=== PATIENT | female | born 1995 | race African-American/Black ===

== ENCOUNTER 2017-03-23 22:33 | Emergency (ER) | payer MEDICAID, SELFPAY ==
[2017-03-23 22:35] VITALS: BP 144/94; PULSE 106; RESP 17; TEMP 36.5; O2SAT 100; BMI 16.6
--- NOTE | 2017-03-23 22:48 | CT_ITS ---
STUDY: CT ABDOMEN AND PELVIS WITHOUT CONTRAST REASON FOR EXAM: Female, 21 years old. Intermittent flank pain x1 week, emesis x1. RADIATION DOSAGE (If Supplied By Facility): CTDIvol = ( 6.04 ) mGy, DLP = ( 255.17 ) mGycm TECHNIQUE: Transaxial 2.5 mm images were obtained from the dome of the diaphragm to the symphysis pubis without oral contrast, and without intravenous contrast. Sagittal and coronal images were reconstructed. This examination is limited for the evaluation of gastrointestinal, solid organs and vascular structures due to the lack of intravenous and oral contrast. Individualized dose optimization techniques were used for this CT. COMPARISON: None. FINDINGS: The visualized lung bases are unremarkable. The visualized portions of the heart are within normal limits. Normal liver. Normal gallbladder and extrahepatic biliary system. Normal spleen. Normal pancreas. Normal bilateral adrenal glands. Mild right hydronephrosis with a obstructing calculus 0.5 x 0.3 x 0.7 cm ( AP x width x height ). Image 73 series 2, image 43 series 601-inferior to the UPJ Left upper renal pole cyst 2 x 2.2 x 2.2 cm. Normal visualized stomach. Normal small intestine. Normal colon. The appendix is partially visualized and appears normal. Normal abdominal aorta. Normal inferior vena cava. Normal retroperitoneum. Normal urinary bladder. Retroverted uterus contains an intrauterine device in good position. There is a right small ovarian cyst of 0.9 x 0.9 cm. Normal abdominal wall. Normal osseous structures. CT/Abdomen/Pelvis without Cont IMPRESSION: Mild right hydronephrosis with a proximal right ureteral calculus just inferior to the UPJ. Left renal and right ovarian cyst. Electronically Signed: Peg Ramos MD at 0:47 EST , Service support ,
[2017-03-23 23:15] LABS: Absolute Lymphocyte Count 2.96 X10^3/ul (0.83-4.51); Absolute Neutrophil Count 6.2 X10^3/uL (2.0-7.7); Basophil# 0.01 X10^3/uL; Basophil% 0.1 % (0-1); Eosinophil# 0.16 X10^3/uL; Eosinophils% 1.6 % (0-5); Hematocrit 38.3 % (37-47); Hemoglobin 13.2 g/dl (12.0-15.0); Lymphocyte # 2.96 X10^3/ul (4.0); Lymphocyte % 28.8 % (19-41); Mean Corp Hgb Conc 34.5 g/gl (32-36); Mean Corpuscular Hgb 30.7 pg (27.0-32.0); Mean Corpuscular Volume 89.1 fL (81-99); Mean Platelet Vol. 10.2 fl (6.2-12.0); Monocyte% 8.8 % (0-10); Neutrophil # 6.23 X10^3/uL (2.7-7.7); Neutrophil % 60.6 % (47-70); POSITIVE COUNT NO; POSITIVE DIFFERENTIAL NO; POSITIVE MORPHOLOGY NO; Platelet Count 274 K/mm3 (150-450); RBC Distribution Width CV 12.7 % (11.6-14.6); RBC Distribution Width SD 40.8 fl (35.1-43.9); White Blood Count 10.3 K/mm3 (4.4-11.0)
[2017-03-23] MEDS: Ondansetron 4 MG/2 ML Vial IV (23:17)
[2017-03-23 23:33] LABS: ALB/GLOB Ratio 1.1 RATIO (0.9-2.4); AST(SGOT) 17 U/L (15-37); Alanine Aminotransfer ALT/SGPT 19 U/L (13-56); Albumin, Serum 3.8 g/dL (3.2-5.0); Alkaline Phosphatase 74 U/L (45-117); Anion Gap 7 (5-15); BUN 15 mg/dL (7-18); BUN/Creat Ratio 32.3 RATIO (10-20); Calcium,Total 8.8 mg/dL (8.5-10.1); Chloride 110 mmol/L (98-107); Creatinine, Serum 0.46 mg/dL (0.55-1.02); EST Glomerular Filtration Rate 178 mL/min (>60); Est Glom Filt Rate - Afr Amer 215 mL/min (>60); Estimated Creatinine Clearance 112.96 ml/min; Globulin 3.5 g/dL (2.2-4.2); Glucose 91 mg/dL (74-106); Lipase 125 U/L (73-393); Potassium 3.5 mmol/L (3.5-5.1); Protein, Total 7.3 g/dL (6.4-8.2); Sodium Level 140 mmol/L (136-145)
[2017-03-23 23:35] LABS: Pregnancy, Serum, hCG Quali. NEGATIVE Negative (0-9 Nonpreg)
--- NOTE | 2017-03-23 23:44 | ED.DCSUM_ITS ---
- ER Visit Summary Date of Service: 03/23/17 Chief Complaint: Right side pain History of Present Illness: The patient is a 21 F with right side pain for the past week, worse today. Patient has associated nausea, vomiting, and chills. Denies any urine changes. Denies any history of kidney stones or kidney infections. Denies shortness of breath or chest pain. Denies trauma. Incidentally, she does report that she has had menstrual bleeding for the past month. She was told it was related to her IUD. Physical Examination: Afebrile and vital signs unremarkable except for a heart rate of 106. The patient appears uncomfortable but not toxic or in distress. Heart regular. Lungs clear throughout all fox. Abdomen tender in the right flank region. Patient also has mild right CVA tenderness and tenderness to palpation over the inferior costal margin on the right. Spine nontender. Overlying skin appears normal. Test Results: CBC, CMP, lipase, and test negative. Urinalysis and CT flank pending. Emergency Department Course and Treatment: Patient presents with right flank pain. This is likely myofascial, but because of the severity, a workup was pursued. So far, lab work is unremarkable. At the time of this dictation, I am waiting for urinalysis and CT results. Patient had fluids, morphine, and Zofran while awaiting results. The oncoming physician will check the results of the urinalysis and CAT scan. Will treat accordingly. If negative, I believe this is myofascial pain. The patient will be prescribed anti-inflammatories and muscle relaxers. Follow-up with primary care. Treatment Plan: As above Disposition: Pending urinalysis and imaging results Impression: 1. Right flank pain This note was generated with [employer] the [employer] software. It may contain incorrect words, spelling, and punctuation that were not noted in review of the chart prior to signing ED Disposition - Plan for ED Patient: Chief Complaint: Abd Pain Referrals: Gerry Villa [Primary Care Provider] -
--- NOTE | 2017-03-23 23:44 | ED.DEP ---
ED Disposition - Plan for ED Patient: Chief Complaint: Abd Pain Instructions: ED Flank Pain Uncertain Cause Prescriptions: Naproxen [Naprosyn] 500 mg PO BID #20 tab Cyclobenzaprine [Flexeril] 10 mg PO TID PRN #20 tab PRN Reason: Muscle Spasm Referrals: Gerry Villa [Primary Care Provider] -
[2017-03-24 00:14] LABS: Mucous, Urine 0 SEEN /hpf (<or=2+)
[2017-03-24 00:17] LABS: Color, Urine Yellow (Yellow); Glucose, Dipstick Normal (Normal); Ketone-Dipstick Negative (Negative); Leukocyte Esterase-Dipstick 100 /ul (Negative); Nitrite-Dipstick Positive (Negative); Occult Blood-Urine 150 /ul (Negative); Protein-Dipstick 15 mg/dl (Negative); Specific Gravity, Urine 1.005 (1.002-1.030); Urine Bilirubin Dipstick Negative (Negative); Urine Clarity Sl. Cloudy (Clear); Urine Urobilinogen Normal (Normal)
[2017-03-24 00:28] LABS: Red Blood Cells-Urine 5-10 SEEN /hpf (0-5); Squamous Epithelial Cells - UA 0-5 SEEN /hpf (5-10); White Blood Cells 5-10 SEEN /hpf (0-5)
[2017-03-24 00:29] LABS: Amorphous Sediment 1+ PHOS; Bacteria RARE /hpf (None Seen)
--- NOTE | 2017-03-24 01:12 | ED.DEP ---
ED Disposition - Plan for ED Patient: Disposition: Home or Assisted Living Chief Complaint: Abd Pain Instructions: Treating Kidney Stones: Medications Prescriptions: Hydrocodone Bitart/Apap 5-325 [Humble 5/325] 1 - 2 tab PO Q4H PRN PRN 3 Days #12 tab PRN Reason: Pain Naproxen [Naprosyn] 500 mg PO BID #20 tab Cyclobenzaprine [Flexeril] 10 mg PO TID PRN #20 tab PRN Reason: Muscle Spasm Referrals: Darron Reynolds MD [STAFF PHYSICIAN] -
[2017-03-24] MEDS: HYDROcodone Bitartrate/Apap 5/325 Tablet PO (01:19)
[2017-03-24 01:21] VITALS: BP 117/77; PULSE 89; RESP 18; O2SAT 98
== END 2017-03-24 01:26 | disposition home or self-care (01) ==
PROVIDERS: Emergency Medicine; Emergency Provider Emergency Medicine; Family Provider Physician Assistant; PCP Physician Assistant
DX: N13.2 Hydronephrosis with renal and ureteral calculous obstruction (principal); G71.0 Muscular dystrophy; Z72.0 Tobacco use
CPT/HCPCS: 74176; 80053; 81001; 83690; 84703; 85025; 96374; 96375; 99283; A4216; J2405

== ENCOUNTER 2017-04-12 23:45 | Emergency (ER) | payer MEDICAID, SELFPAY ==
--- NOTE | 2017-04-12 00:40 | RAD_ITS ---
STUDY: X-RAY - ABDOMEN/PELVIS REASON FOR EXAM: Female, 21 years old. Abdominal pain. History of kidney stone. TECHNIQUE: AP supine abdomen. COMPARISON: CT abdomen and pelvis March 23, 2017. FINDINGS: Normal visualized lung bases. There is an unremarkable bowel gas pattern. There is no demonstrated free abdominal air. The visualized liver, spleen and kidneys are grossly normal in size and morphology. 7 mm right mid abdominal stone identified on the prior CT scan is not visualized on the study. Normal soft tissue structures. Normal visualized osseous structures. IUD present in the pelvis. RAD/Abdomen Single View IMPRESSION: Normal x-ray examination of the abdomen and pelvis. Previously noted proximal right ureteral stone not visualized. Electronically Signed: Dank Villagomez MD at 1:15 EST , Service support ,
[2017-04-12 23:45] VITALS: BP 127/78; PULSE 94; RESP 16; TEMP 36.7; BMI 16.2
--- NOTE | 2017-04-12 23:56 | ED.VISSUMM ---
- ER Visit Summary Date of Service: 04/12/17 Chief Complaint: Flank pain, dysuria History of Present Illness: The patient is a 21 F is to the emergency department with urinary frequency and urgency. The patient had documented CTs scan which showed a striking stone on the right. She is following with urology. Her next appointment is in 7 days. She states over the past 24 hours, she has had some increasing spasm, urinary frequency, and urgency. She also had some scant hematuria. She states she has not had anything like this since she was diagnosed. She denies any fevers or chills. She denies any nausea vomiting. She denies any other systemic symptoms. Physical Examination: Vital signs reviewed General: Well-nourished, well-developed Head: Normocephalic, atraumatic Eyes: Pupils equal and reactive, extraocular muscles intact Neck, supple, no lymphadenopathy Heart: Regular rate and rhythm Respiratory: No distress, clear bilaterally Abdomen: Soft, nontender, nondistended, no peritoneal signs Back: Mild right-sided CVA tenderness Extremities: Nontender, no edema, no cords Skin: Normal color no rash Neuro: Alert and oriented, no focal or lateralizing deficits Test Results: UA shows no evidence of acute infection. KUB is none able to visualize the stone. Emergency Department Course and Treatment: Patient's major complaint is of urinary frequency and some burning of her urethra. I did review her CT and it was a large obstructing stone. I obtained a KUB and the stone was unable to be visualized. She has really no significant tenderness. Her abdomen was benign. The urine does not show any evidence of infection. I do feel she is likely having some spasm as the stone is likely moving. She is tolerating p.o. I do feel that she is safe for outpatient therapy. I will refill a short course of analgesics given the size of her stone. I will also add Pyridium for her pain with urination. The patient be discharged home. Treatment Plan: [] Disposition: Discharge Impression: 1. Renal colic 2. Dysuria This note was generated with [employer] dictation software. It may contain incorrect words, spelling, and punctuation that were not noted in review of the chart prior to signing ED Disposition - Plan for ED Patient: Chief Complaint: Complaint Instructions: ED Stone Renal W Colic Prescriptions: Hydrocodone Bitart/Apap 5-325 [Satartia 5/325] 1 tab PO Q4H PRN PRN #10 tab PRN Reason: Pain Phenazopyridine HCl [Pyridium] 200 mg PO BID PRN PRN #10 tab PRN Reason: Pain Referrals: Gerry Villa [Primary Care Provider] -
[2017-04-13] MEDS: Ondansetron ODT 4 MG Tablet PO (00:58)
[2017-04-13 01:14] LABS: Bacteria 0 SEEN /hpf (None Seen); Mucous, Urine 0 SEEN /hpf (<or=2+)
[2017-04-13 01:21] LABS: Color, Urine Yellow (Yellow); Glucose, Dipstick Normal (Normal); Ketone-Dipstick Negative (Negative); Leukocyte Esterase-Dipstick 100 /ul (Negative); Nitrite-Dipstick Negative (Negative); Occult Blood-Urine 25 /ul (Negative); Protein-Dipstick 30 mg/dl (Negative); Specific Gravity, Urine 1.015 (1.002-1.030); Urine Bilirubin Dipstick Negative (Negative); Urine Clarity Cloudy (Clear); Urine Urobilinogen Normal (Normal)
[2017-04-13 01:29] LABS: Internal QC Validated? YES +Cl - CLEAR BKGD; Pregnancy, Urine Negative Negative
[2017-04-13] MEDS: HYDROcodone Bitartrate/Apap 5/325 Tablet PO ×2 (01:32→02:07)
[2017-04-13 01:34] LABS: Red Blood Cells-Urine 0-5 SEEN /hpf (0-5); White Blood Cells 5-10 SEEN /hpf (0-5)
[2017-04-13 01:35] LABS: Amorphous Sediment 3+; Squamous Epithelial Cells - UA 10-25 SEEN /hpf (5-10)
[2017-04-13 01:40] VITALS: BP 131/74; PULSE 98; RESP 24; O2SAT 98
[2017-04-13] MEDS: Phenazopyridine 95 MG Tablet 190 MG PO (02:07)
[2017-04-13 02:10] VITALS: BP 129/78; PULSE 87; RESP 14; O2SAT 98
--- NOTE | 2017-04-13 02:11 | ED.RN ---
THIS NURSE REVIEWED D/C INSTRUCTIONS WITH PT. PT VERBALIZED UNDERSTANDING OF INSTRUCTIONS. PT DENIES FURTHER NEEDS OR QUESTIONS AT THIS TIME. PT AMBULATES FROM ROOM ON OWN WITHOUT ASSISTANCE FROM STAFF
== END 2017-04-13 02:12 | disposition home or self-care (01) ==
PROVIDERS: Emergency Provider Emergency Medicine; Family Provider Physician Assistant; PCP Physician Assistant
DX: N20.0 Calculus of kidney (principal); Z87.442 Personal history of urinary calculi
CPT/HCPCS: 74018; 81001; 81025; 99283

== ENCOUNTER → 2017-09-22 16:26 | Outpatient (CLI) | payer MEDICAID, SELFPAY ==
[2017-09-22 19:20] LABS: Chlamydia Trachomatis by PCR Negative (Negative); Neisserai gonorrhoeae by PCR Negative (Negative); Probe Check PASS; Sample Adequacy Control PASS; Specimen Processing Control PASS
== END ==
PROVIDERS: Visit Provider Obstetrics & Gynecology
DX: Z11.3 Encounter for screening for infections with a predominantly sexual mode of transmission (principal)
CPT/HCPCS: 87077; 87086; 87088; 87186; 87491; 87591

== ENCOUNTER → 2018-01-20 14:30 | Outpatient (CLI) | payer MEDICAID, SELFPAY ==
[2018-01-20 14:30] VITALS: BMI 16.6
[2018-01-20 18:01] LABS: Chlamydia Trachomatis by PCR Negative (Negative); Neisserai gonorrhoeae by PCR Negative (Negative); Probe Check PASS; Sample Adequacy Control PASS; Specimen Processing Control PASS
[2018-01-25 14:34] LABS: HPV Reflexed? NOT INDICATED
== END ==
PROVIDERS: Visit Provider Obstetrics & Gynecology
DX: Z12.4 Encounter for screening for malignant neoplasm of cervix (principal); Z11.3 Encounter for screening for infections with a predominantly sexual mode of transmission; Z32.01 Encounter for pregnancy test, result positive
CPT/HCPCS: 87491; 87591; 88175; G0145

== ENCOUNTER → 2018-02-04 11:15 | Outpatient (CLI) | payer MEDICAID, SELFPAY ==
[2018-01-20 14:30] VITALS: BMI 16.6
[2018-02-04 12:23] LABS: Absolute Neutrophil Count 6.3 X10^3/uL (2.0-7.7); Eosinophil# 0.05 X10^3/uL; Eosinophils% 0.6 % (0-5); Hematocrit 38.4 % (37-47); Lymphocyte % 15.8 % (19-41); Mean Corp Hgb Conc 33.9 g/gl (32-36); Mean Corpuscular Hgb 29.9 pg (27.0-32.0); Mean Corpuscular Volume 88.3 fL (81-99); Mean Platelet Vol. 9.9 fl (6.2-12.0); Monocyte# 0.57 X10^3/uL; Monocyte% 6.9 % (0-10); Neutrophil # 6.28 X10^3/uL (2.7-7.7); Neutrophil % 76.6 % (47-70); Platelet Count 307 K/mm3 (150-450); RBC Distribution Width CV 12.8 % (11.6-14.6); RBC Distribution Width SD 41.6 fl (35.1-43.9); Red Blood Count 4.35 M/mm3 (4.2-5.4); White Blood Count 8.2 K/mm3 (4.4-11.0)
[2018-02-04 12:27] LABS: POSITIVE COUNT NO; POSITIVE DIFFERENTIAL NO; POSITIVE MORPHOLOGY NO
[2018-02-04 13:17] LABS: Thyroid Stim Hormone (TSH) < 0.01 uIU/mL (0.358-3.74)
[2018-02-04 13:49] LABS: HIV - WCH Non-Reactive (Nonreactive); Rubella IgG 346.4 IU/mL
[2018-02-04 14:10] LABS: Free T3 4.7 pg/mL (2.18-3.98); T4 Free Direct 1.57 ng/dL (0.76-1.46)
[2018-02-04 15:20] LABS: Color, Urine Yellow (Yellow); Glucose, Dipstick Normal (Normal); Ketone-Dipstick Negative (Negative); Leukocyte Esterase-Dipstick Negative /ul (Negative); Nitrite-Dipstick Negative (Negative); Occult Blood-Urine Negative /ul (Negative); Protein-Dipstick 15 mg/dl (Negative); Urine Bilirubin Dipstick Negative (Negative); Urine Clarity Cloudy (Clear); Urine Urobilinogen Normal (Normal)
[2018-02-04 15:32] LABS: COTININE Drug Screen Positive (<200 ng/mL)
[2018-02-04 16:33] LABS: Amphetamine Urine VISTA NEGATIVE (<1000 ng/mL); Barbiturate Urine VISTA NEGATIVE (< 200 ng/mL); Benzodiazepine Urine VISTA NEGATIVE (< 200 ng/mL); Cocaine Urine VISTA NEGATIVE (< 300 ng/mL); Ecstacy Urine VISTA NEGATIVE (< 500 ng/mL); Methadone Urine VISTA NEGATIVE (< 300 ng/mL); PCP Urine VISTA NEGATIVE (< 25 ng/mL); THC Urine VISTA NEGATIVE (< 50 ng/mL); Vista UDS pH Range 7
[2018-02-04 23:53] LABS: Prenatal RPR NONREACTIVE (NONREACTIVE)
[2018-02-05 12:48] LABS: HEPATITIS B SURFACE AG Negative (Negative); Hep C Antibodies 0.2 s/co ratio (0.0-0.9)
== END ==
PROVIDERS: Visit Provider Obstetrics & Gynecology
DX: Z34.81 Encounter for supervision of other normal pregnancy, first trimester (principal)
CPT/HCPCS: 36415; 80307; 81002; 84439; 84443; 84481; 85025; 86703; 86762; 86803; 87340

== ENCOUNTER → 2018-03-01 13:28 | Outpatient (CLI) | payer MEDICAID, SELFPAY ==
[2018-01-20 14:30] VITALS: BMI 16.6
[2018-03-01 14:15] LABS: Free T3 3.1 pg/mL (2.18-3.98); T4 Free Direct 1.08 ng/dL (0.76-1.46); Thyroid Stim Hormone (TSH) < 0.01 uIU/mL (0.358-3.74)
== END ==
PROVIDERS: Visit Provider Obstetrics & Gynecology
DX: Z34.82 Encounter for supervision of other normal pregnancy, second trimester (principal)
CPT/HCPCS: 36415; 84439; 84443; 84481

== ENCOUNTER → 2018-04-14 15:35 | Outpatient (CLI) | payer MEDICAID, SELFPAY ==
[2018-01-20 14:30] VITALS: BMI 16.6
[2018-04-14 18:08] LABS: Free T3 2.4 pg/mL (2.18-3.98); T4 Free Direct 0.97 ng/dL (0.76-1.46); Thyroid Stim Hormone (TSH) 0.25 uIU/mL (0.358-3.74)
== END ==
PROVIDERS: Visit Provider Obstetrics & Gynecology
DX: O99.282 Endocrine, nutritional and metabolic diseases complicating pregnancy, second trimester (principal); R94.6 Abnormal results of thyroid function studies; Z3A.00 Weeks of gestation of pregnancy not specified
CPT/HCPCS: 36415; 84439; 84443; 84481

== ENCOUNTER → 2018-05-04 14:59 | Outpatient (CLI) | payer MEDICAID, SELFPAY ==
[2018-01-20 14:30] VITALS: BMI 16.6
[2018-05-04 15:47] LABS: Fetal Fibronectin Negative
== END ==
PROVIDERS: Visit Provider Obstetrics & Gynecology
DX: Z34.82 Encounter for supervision of other normal pregnancy, second trimester (principal)
CPT/HCPCS: 82731

== ENCOUNTER → 2018-06-09 13:03 | Outpatient (CLI) | payer MEDICAID, SELFPAY ==
[2018-01-20 14:30] VITALS: BMI 16.6
[2018-06-09 14:12] LABS: Hematocrit 32.4 % (37-47); Hemoglobin 10.8 g/dl (12.0-15.0); Mean Corp Hgb Conc 33.3 g/gl (32-36); Mean Corpuscular Hgb 29.3 pg (27.0-32.0); Mean Corpuscular Volume 87.8 fL (81-99); Mean Platelet Vol. 10.3 fl (6.2-12.0); Platelet Count 220 K/mm3 (150-450); RBC Distribution Width CV 13.2 % (11.6-14.6); RBC Distribution Width SD 42.6 fl (35.1-43.9); Red Blood Count 3.69 M/mm3 (4.2-5.4); White Blood Count 10.9 K/mm3 (4.4-11.0)
[2018-06-09 14:14] LABS: Glucose Challenge Gest 1H 50g 118 mg/dL (70-140); Scan Indicated on CBC? Y/N NO
== END ==
PROVIDERS: Visit Provider Obstetrics & Gynecology
DX: Z34.83 Encounter for supervision of other normal pregnancy, third trimester (principal)
CPT/HCPCS: 36415; 82950; 85027

== ENCOUNTER 2018-07-19 23:06 | Outpatient (CLI) | payer MEDICAID, SELFPAY ==
[2018-01-20 14:30] VITALS: BMI 16.6
[2018-07-19 23:50] VITALS: BMI 23.1
--- NOTE | 2018-07-26 21:50 | OB.TRI.NOTE ---
History of Present Illness Date of Service: 07/19/18 Was patient seen by the physician?: No Reason For Visit: R/O LABOR Date of Service: 07/19/18 Final DEV: 08/31/18 Gestational age: 33 Weeks and 6 Days History of Present Illness: 33+ week intrauterine presents due to no movement for 2 days and some contractions. care remarkable for prior section with a repeat planned. She also has known muscular dystrophy and smokes daily. Allergies amoxicillin [Amoxicillin] Allergy (Verified 07/20/18 00:18) Rash venom-honey bee [bee venom (honey bee)] Allergy (Verified 07/20/18 00:18) Swelling NST - FHR Rate Baby A NST Reactive:: Yes FHR Category:: Category I Impression/Plan 33+ week intrauterine with transient contractions and reactive nonstress test. Will release to home with routine follow-up care planned.
== END 2018-07-20 00:18 | disposition home or self-care (01) ==
LOC: WPOUT 23:48 → WP 23:49
PROVIDERS: Visit Provider Obstetrics & Gynecology
DX: O60.03 Preterm labor without delivery, third trimester (principal); O36.8130 Decreased fetal movements, third trimester, not applicable or unspecified; O99.333 Smoking (tobacco) complicating pregnancy, third trimester; O99.353 Diseases of the nervous system complicating pregnancy, third trimester; G71.00 Muscular dystrophy, unspecified; Z3A.33 33 weeks gestation of pregnancy

== ENCOUNTER → 2018-07-19 | Outpatient (CLI) | payer MEDICAID, SELFPAY ==
[2018-01-20 14:30] VITALS: BMI 16.6
== END | disposition home or self-care (01) ==
PROVIDERS: Visit Provider Obstetrics & Gynecology
DX: N39.0 Urinary tract infection, site not specified (principal)
CPT/HCPCS: 59025; 59050; 87086; 87088; 99218; G0378

== ENCOUNTER → 2018-08-03 13:37 | Outpatient (CLI) | payer MEDICAID, SELFPAY ==
[2018-07-19 23:50] VITALS: BMI 23.1
--- NOTE | 2018-08-05 08:12 | OB.TRI.NOTE ---
History of Present Illness Date of Service: 08/05/18 Was patient seen by the physician?: No Reason For Visit: r/o labor Date of Service: 08/05/18 Final DEV: 08/31/18 Final DEV Source: US <20 weeks Gestational age: 36 Weeks and 2 Days History of Present Illness: Complaints of contractions. 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 No signs of SROM. Reassuring heart rate tracing.
== END ==
PROVIDERS: Visit Provider Obstetrics & Gynecology
DX: Z36.85 Encounter for antenatal screening for Streptococcus B (principal)
CPT/HCPCS: 87081

== ENCOUNTER 2018-08-05 01:32 | Outpatient (CLI) | payer MEDICAID, SELFPAY ==
[2018-08-05 01:54] VITALS: BMI 23.7
[2018-08-05] MEDS: Dextrose 5%-Lactated Ringers 1,000 ML 999 ML IV (03:30)
== END 2018-08-05 04:50 | disposition home or self-care (01) ==
LOC: WPOUT 01:47 → WP 01:48
PROVIDERS: Visit Provider Obstetrics & Gynecology
DX: O62.9 Abnormality of forces of labor, unspecified (principal); Z3A.36 36 weeks gestation of pregnancy
CPT/HCPCS: 96360; 59025; 59050; 99218; G0378

== ENCOUNTER 2018-08-17 19:55 | Outpatient (CLI) | payer MEDICAID, SELFPAY ==
[2018-08-17 20:04] VITALS: BMI 24.0
[2018-08-17 20:45] LABS: ROM Internal Control Test YES-OK TO RESULT pt. (Internal QC); ROM Patient Test Negative (Negative)
[2018-08-17 21:06] VITALS: RESP 16
--- NOTE | 2018-08-23 13:41 | OB.TRI.NOTE ---
History of Present Illness Date of Service: 08/17/18 Was patient seen by the physician?: No Reason For Visit: DFM Final DEV Source: US <20 weeks Allergies amoxicillin [Amoxicillin] Allergy (Verified 08/17/18 20:05) Rash venom-honey bee [bee venom (honey bee)] Allergy (Verified 08/17/18 20:05) Swelling Laboratory Studies: Laboratory Tests 08/17/18 Range/Units 20:08 Vag Amniotic Fld Detect Negative (Negative) Physical Exam Vitals: Vital Signs Resp 16 08/17/18 21:06 Impression/Plan Date: 08/18/18 08:10 Initialization Date: 08/18/18 08:10 History of Present Illness Date of Service: 08/17/18 Was patient seen by the physician?: No Final DEV: 08/31/18 Final DEV Source: US <20 weeks Gestational age: 38 Weeks and 1 Days Allergies amoxicillin [Amoxicillin] Allergy (Verified 08/17/18 20:05) Rash venom-honey bee [bee venom (honey bee)] Allergy (Verified 08/17/18 20:05) Swelling NST - FHR Rate Baby A Baseline: 130 Variability:: Moderate Accelerations:: 15 x 15 Decelerations:: None NST Reactive:: Yes FHR Category:: Category I Uterine Activity:: irreg ctxs Impression/Plan 22-year-old high risk multigravida, previous section, decreased movement. Nonstress test is reactive. Kick counts and follow-up in the office as scheduled or as needed.
== END 2018-08-17 21:05 | disposition home or self-care (01) ==
LOC: WPOUT 20:03 → WP 20:04
PROVIDERS: Visit Provider Obstetrics & Gynecology
DX: O36.8130 Decreased fetal movements, third trimester, not applicable or unspecified (principal); O09.623 Supervision of young multigravida, third trimester; O34.219 Maternal care for unspecified type scar from previous cesarean delivery; Z3A.38 38 weeks gestation of pregnancy
CPT/HCPCS: 59025; 59050; 84112; 99218; G0378

== ENCOUNTER 2018-08-24 13:12 | Outpatient (CLI) | payer MEDICAID, SELFPAY ==
[2018-08-24 13:36] VITALS: BMI 24.0
[2018-08-24 13:52] VITALS: BMI 25.2
[2018-08-24 14:10] LABS: ROM Internal Control Test YES-OK TO RESULT pt. (Internal QC); ROM Patient Test Negative (Negative)
--- NOTE | 2018-08-24 17:22 | OB.TRI.NOTE ---
History of Present Illness Date of Service: 08/24/18 Was patient seen by the physician?: No Reason For Visit: R/O LABOR Date of Service: 08/24/18 Final DEV: 08/31/18 Final DEV Source: US <20 weeks Gestational age: 39 Weeks and 0 Days Allergies amoxicillin [Amoxicillin] Allergy (Verified 08/24/18 08:14) Rash venom-honey bee [bee venom (honey bee)] Allergy (Verified 08/24/18 08:14) Swelling Laboratory Studies: Laboratory Tests 08/24/18 Range/Units 13:30 Vag Amniotic Fld Detect Negative (Negative) NST - FHR Rate Baby A Baseline: 135 Variability:: Moderate Accelerations:: 15 x 15 Decelerations:: Variable NST Reactive:: Yes Uterine Activity:: Irregular ctxs Impression/Plan NST for false labor
== END 2018-08-24 15:15 | disposition home or self-care (01) ==
LOC: WPOUT 13:39 → WP 13:41
PROVIDERS: Referring Provider Obstetrics & Gynecology; Visit Provider Obstetrics & Gynecology
DX: O47.1 False labor at or after 37 completed weeks of gestation (principal); Z3A.39 39 weeks gestation of pregnancy
CPT/HCPCS: 59025; 59050; 84112; 99218; G0378